=== PATIENT | female | born 1975 | race African-American/Black ===

== ENCOUNTER 2024-11-21 15:51 | Inpatient (IN) | payer SELFPAY ==
[~2024-11-21] VITALS: Ht 157.5 cm; Wt 108.9 kg
[2024-11-21 18:43] LABS: PLATELET COUNT (AUTO) 308 K/uL (150-450); RED BLOOD CELL COUNT(AUTO) 4.89 MIL/uL (4.00-5.20); RED CELL DISTRIBUTION WIDTH 15.3 % (11.5-14.5); WHITE BLOOD COUNT (AUTO) 7.4 K/uL (4.5-11.0)
[2024-11-21 18:50] LABS: CALCIUM, TOTAL 8.8 mg/dL (8.8-10.5); CREATININE 1.25 mg/dL (0.60-1.30); GLOMERULAR FILTR. RATE CALC 55 mL/min (>60); GLUCOSE,RANDOM 92 mg/dL (70-110); SODIUM SERUM 143 mmol/L (136-145); UREA NITROGEN, BLOOD 17 mg/dL (7-18)
[2024-11-21 18:52] LABS: ASPARTATE AMINOTRANSFERASE 23.0 U/L (15-37); CREATINE KINASE, TOTAL ONLY 402.0 U/L (26-192); TOTAL PROTEIN, SERUM 7.4 g/dL (6.4-8.2)
[2024-11-21 18:59] LABS: TROPONIN I-HIGH SENSITIVITY 12 ng/L (<51)
[2024-11-21 19:55] LABS: COVID AG,FIA SOURCE NASAL SWAB
[2024-11-21 19:57] LABS: APPEARANCE,URINE CLEAR (CLEAR); GLUCOSE, URINE (UA) NEGATIVE (NEGATIVE); LEUKOCYTE ESTERASE ,URINE NEGATIVE (NEGATIVE); NITRATE,URINE NEGATIVE (NEGATIVE); OCCULT BLOOD,URINE NEGATIVE (NEGATIVE); SPECIFIC GRAVITIY, URINE 1.032 (1.003-1.030)
[2024-11-21] MEDS: FUROSEMIDE 20 MG/2 ML VIAL IVP ONE (20:04)
[2024-11-21 20:14] LABS: INFLUENZA TYPE A NEGATIVE FOR TYPE A (NEGATIVE); INFLUENZA TYPE B NEGATIVE FOR TYPE B (NEGATIVE); SARS-COV2 (COVID) ANTIGEN,FIA Negative (Negative)
[2024-11-21] MEDS ORDERED: ZOLPIDEM TARTRATE 5 MG TABLET PO PRN (21:30)
[2024-11-21] MEDS ORDERED: ACETAMINOPHEN 325 MG TABLET PO PRN (21:30)
[2024-11-22] VITALS (9 sets, daily range): BP systolic 120–178; BP diastolic 63–99; PULSE 62–82; RESP 18–22; TEMP 97.1–98.4; O2SAT 96–100
[2024-11-22] MEDS: HEPARIN SODIUM,PORCINE 5,000 UNITS/ML VIAL SQ SCH
[2024-11-22] MEDS: DOCUSATE SODIUM 100 MG CAPSULE PO SCH (09:00)
[2024-11-22] MEDS: FAMOTIDINE 20 MG TABLET PO SCH (09:05)
[2024-11-22] MEDS: ALBUTEROL SULFATE 2.5 MG/0.5 ML NEB SOLUTION NEB PRN (21:04)
[2024-11-22 21:48] LABS: PH,URINE DRUG SCREEN 6.5 (5.0-8.0)
[2024-11-22 21:53] LABS: ALCOHOL, URINE DRUG SCREEN NEGATIVE (NEGATIVE); AMPHET/METH SCREEN,URINE POSITIVE (NEGATIVE); BARBITURATE SCREEN, URINE NEGATIVE (NEGATIVE); CANNABINOID SCREEN,URINE NEGATIVE (NEGATIVE); COCAINE SCREEN,URINE NEGATIVE (NEGATIVE); METHADONE SCREEN, URINE NEGATIVE (NEGATIVE)
[2024-11-23] VITALS: BP 133/75; PULSE 73; RESP 18; TEMP 98.2; O2SAT 97
[2024-11-23 03:08] VITALS: BP 139/86; PULSE 53; RESP 19; TEMP 98; O2SAT 99
[2024-11-23 06:28] LABS: CALCIUM, TOTAL 8.9 mg/dL (8.8-10.5); CREATININE 0.93 mg/dL (0.60-1.30); GLOMERULAR FILTR. RATE CALC > 60 mL/min (>60); GLUCOSE,RANDOM 150 mg/dL (70-110); SODIUM SERUM 141 mmol/L (136-145); UREA NITROGEN, BLOOD 19 mg/dL (7-18)
[2024-11-23 08:24] VITALS: BP 138/99; PULSE 53; RESP 18; TEMP 98.2; O2SAT 99
[2024-11-23] MEDS ORDERED: POTASSIUM CHL 10 MEQ/WATER 50 ML IV PRN (08:45)
[2024-11-23] MEDS: POTASSIUM CHLORIDE 20 MEQ ER TABLET PO PRN (09:40)
[2024-11-23] MEDS ORDERED: IOHEXOL 350 MG/ML 100 ML VIAL ONE (11:51)
[2024-11-23] MEDS ORDERED: SODIUM CHLORIDE 0.9% 100 ML ONE (11:51)
[2024-11-23 12:03] VITALS: BP 159/95; PULSE 65; RESP 17; TEMP 98.2; O2SAT 100
[2024-11-23 16:03] VITALS: BP 132/69; PULSE 78; RESP 17; TEMP 97.5; O2SAT 100
[2024-11-23 20:21] VITALS: BP 153/102; PULSE 78; RESP 20; TEMP 98.8; O2SAT 100
[2024-11-23] MEDS: PHENYLEPHRINE/SHK LV/MIN OIL/PET 57 GM OINTMENT TP PRN (22:21)
[2024-11-24] VITALS: BP 158/95; PULSE 65; RESP 19; TEMP 98.2; O2SAT 97
[2024-11-24 04:38] VITALS: BP 143/85; PULSE 54; RESP 20; TEMP 97.7; O2SAT 100
[2024-11-24 08:12] VITALS: BP 185/104; PULSE 60; RESP 19; TEMP 97.5; O2SAT 98
[2024-11-24 09:38] LABS: PLATELET COUNT (AUTO) 329 K/uL (150-450); RED BLOOD CELL COUNT(AUTO) 5.25 MIL/uL (4.00-5.20); RED CELL DISTRIBUTION WIDTH 15.4 % (11.5-14.5); WHITE BLOOD COUNT (AUTO) 13.0 K/uL (4.5-11.0)
[2024-11-24 09:47] VITALS: BP 141/90
[2024-11-24 10:12] LABS: CALCIUM, TOTAL 9.0 mg/dL (8.8-10.5); CREATININE 0.99 mg/dL (0.60-1.30); GLOMERULAR FILTR. RATE CALC > 60 mL/min (>60); GLUCOSE,RANDOM 103 mg/dL (70-110); SODIUM SERUM 139 mmol/L (136-145); UREA NITROGEN, BLOOD 20 mg/dL (7-18)
[2024-11-24 11:34] VITALS: BP 147/87; PULSE 62; RESP 18; TEMP 97.7; O2SAT 99
== END 2024-11-24 15:00 | disposition home or self-care (01) | DRG 292 ==
LOC: EMS 16:17 → EDH 21:20 → 5N 11-22 01:25
PROVIDERS: ADMIT Internal Medicine; ATTEND Internal Medicine
DX: I11.0 Hypertensive heart disease with heart failure (principal); J44.1 Chronic obstructive pulmonary disease with (acute) exacerbation; Z68.41 Body mass index [BMI] 40.0-44.9, adult; E66.01 Morbid (severe) obesity due to excess calories; Z20.822 Contact with and (suspected) exposure to COVID-19; I50.9 Heart failure, unspecified; G47.33 Obstructive sleep apnea (adult) (pediatric); F15.10 Other stimulant abuse, uncomplicated; Z91.148 Patient's other noncompliance with medication regimen for other reason
CPT/HCPCS: 71045; 74177; 76856; 80048; 80076; 80307; 81003; 82550; 83880; 84132; 84484; 84703; 85025; 85610; 85730; 87491; 87591; 87804; 93005; 93306; 94640; 96374; 99285; G0378; J1644; J1938; J2919; J7050; 36415-L1; 36415-TC